=== PATIENT | male | born 1970 ===

== ENCOUNTER 2019-06-18 10:48 | Inpatient (IN) | payer SELFPAY ==
[~2019-06-18] VITALS: Ht 170.2 cm; Wt 65.8 kg
[2019-06-18] MEDS ORDERED: KOMBIGLYZE XR 11 TER PO (11:04)
[2019-06-18 11:24] LABS: BASO # 0.1 (0.0-0.2); BASO % 0.7 % (0.0-2.0); EOS # 0.3 (0.0-0.7); EOS % 4.1 % (0-4.0); GRAN # 4.4 (1.4-6.5); GRAN % 58.7 % (42.2-75.2); HEMATOCRIT 39.6 % (42.0-52.0); LYMPH % 26.2 % (20.0-51.0); MEAN CELL VOLUME 85 fl (80.0-100.0); MEAN CORPUSCULAR HEMOGLOBIN 28 pg (27.0-31.0); MEAN CORPUSCULAR HGB CONC 33 g/dl (33.0-37.0); MEAN PLATELET VOLUME 10.4 fl (7.4-10.4); MONO # 0.8 (0.1-0.6); PLATELET COUNT 267 K/mm3 (130-400); RED BLOOD COUNT 4.66 M/mm3 (4.20-5.60); REDCELL DISTRIBUTION WIDTH-CV 12.6 % (11.5-14.5)
[2019-06-18 11:39] LABS: ALBUMIN 4.1 gm/dL (3.5-5.0); BILIRUBIN,TOTAL 0.5 mg/dL (0.0-1.0); CALCIUM 9.9 mg/dL (8.4-10.2); CREATININE, serum 1.3 (0.66-1.25); POTASSIUM 4.2 mmol/L (3.4-5.0); TOTAL PROTEIN 7.9 gm/dL (6.4-8.2)
[2019-06-18 12:09] LABS: THYROID STIMULATING HORMONE 2.84 uIU/mL (0.465-4.680)
[2019-06-18 17:19] VITALS: BP 152/86; PULSE 78; TEMP 98.6
--- NOTE | 2019-06-18 17:25 | NUR ---
Dysphasia screen conducted, given increasing amounts of water, no coughing, choking, or other problems noted.
[2019-06-18 19:01] VITALS: BP 138/73; PULSE 86; TEMP 98.1
--- NOTE | 2019-06-18 19:27 | NUR ---
Pt up to the floor from the ED this afternoon, no C/O pain, Pt speaks only Trin[place], Family helped by translating. Initial assessments completed without remarkable findings.
--- NOTE | 2019-06-18 19:45 | NUR ---
PT RESTING IN BED A+OX4. FAMILY AT BEDSIDE. REPORTS NO PAIN NO SOA. NO NAUSEA. LUNGS CLEAR AND DIMINISHED. BOWELS SOUNDS HEARD THROUGHOUT ABD. SOFT ABD. HEART RRR. TELE ON. SCORE 0 ON STROKE SCALE. IV FLUSHES WELL, NO REDNESS, NO SWELLING. NO NEEDS AT THIS TIME. CALL LIGHT IN REACH
--- NOTE | 2019-06-18 23:21 | NUR ---
nuero checks insignificant and unchanged.
[2019-06-19 00:01] VITALS: BP 155/89; PULSE 74; TEMP 97.9
[2019-06-19 03:25] VITALS: BP 135/90; PULSE 75
--- NOTE | 2019-06-19 04:25 | NUR ---
PT RESTING IN BED. STROKE SCALE- PT IS ABLE TO FOLLOW DIRECTIONS- STRENGTH ON BOTH SIDES EQUAL AND STRONG THROUGHOUT NIGHT. WHEN FAMILY IS AT BEDSIDE, THIS NURSE IS ABLE TO ASK ORIENTAION QUESTIONS- PT TAKES AN EXTENDED AMOUNT OF TIME TO ANSWER- FAMILY MEMBER SAYS HE ANSWERED CORRECTLY, BUT FAMILY MEMBER UZBEK IS POOR. THIS NURSE ASKED IF THAT CONFUSION AND DELAY IS NORMAL FOR PATIENT HE FAMILY MEMBER STATES HE DOES NOT KNOW.
--- NOTE | 2019-06-19 05:43 | NUR ---
PT HAD AN UNEVENTFUL NIGHT. PT FOLLOWED DIRECTION FOR NUERO CHECKS. STRENGTH IS STRONG AND EQUAL ON BILAT SIDES. PT SLOW TO ANSWER QUESTIONS AND FAMILY MEMBER REPORTS HE ANSWERS QUESTIONS RIGHT BUT THEN OTHER TIMES HE SAYS HE DOES NOT- FAMILY MEMBERS GERMAN IS VERY POOR- SO UNCLEAR IF RESPONSES ARE ACCURATE. PT DOES SEEM CONFUSED WHEN FAMILY ASKS ORIENTATION QUESTIONS. NO PAIN. NO SOA. NO NEEDS AT THIS TIME. CALL LIGHT IN REACH
[2019-06-19 06:35] LABS: BASO # 0.1 (0.0-0.2); BASO % 0.8 % (0.0-2.0); EOS # 0.3 (0.0-0.7); EOS % 5.2 % (0-4.0); GRAN # 2.8 (1.4-6.5); GRAN % 47.3 % (42.2-75.2); HEMATOCRIT 38.1 % (42.0-52.0); HEMOGLOBIN 12.6 g/dl (13.5-18.0); LYMPH # 2.1 (1.2-3.4); LYMPH % 35.6 % (20.0-51.0); MEAN CELL VOLUME 85 fl (80.0-100.0); MEAN CORPUSCULAR HEMOGLOBIN 28 pg (27.0-31.0); MEAN CORPUSCULAR HGB CONC 33 g/dl (33.0-37.0); MONO # 0.6 (0.1-0.6); MONO % 10.8 % (1.7-9.3); PLATELET COUNT 264 K/mm3 (130-400); REDCELL DISTRIBUTION WIDTH-CV 12.5 % (11.5-14.5)
[2019-06-19 06:48] LABS: ALBUMIN 3.6 gm/dL (3.5-5.0); BILIRUBIN,TOTAL 0.5 mg/dL (0.0-1.0); CHOLESTEROL RISK RATIO 4.6; CREATININE, serum 0.77 (0.66-1.25); POTASSIUM 3.9 mmol/L (3.4-5.0); TOTAL PROTEIN 7.1 gm/dL (6.4-8.2)
--- NOTE | 2019-06-19 06:49 | NUR ---
REPORT GIVEN TO ERICK TOVAR
--- NOTE | 2019-06-19 08:00 | NUR ---
PATIENT IS ORIENTED TO PERSON BUT IS CONFUSED. WHEN ASKED WHERE HE IS PATIENT ANSWERED "OUTSIDE" IN [place]. PATIENT DOES NOT SPEAK KHMER. NEPHEW AT BEDSIDE TO ASSIST WITH TRANSLATION. PATIENT IS ALSO COUNTING IN [place], QUIETLY WITH HIS FINGERS ON HIS RIGHT HAND, OVER AND OVER. WHEN ASKED WHAT HE IS DOING PATIENT JUST LAUGHTS. PHYSICAL ASSESSMENT IS WNL. ST AT BEDSIDE TO EVAL & TREAT. HEAD TO TOE ASSESSMENT COMPLETE. AM MEDS GIVEN. CALL LIGHT IN REACH.
--- NOTE | 2019-06-19 10:40 | NUR ---
Initial visit; Patient's family thanked Fat Purification Worker for looking in on him and offering God's blessings. Patient will be offered Holy Communion.
[2019-06-19 11:34] VITALS: BP 131/83; PULSE 76; TEMP 97.5
--- NOTE | 2019-06-19 14:56 | NUR ---
SW met with the patient, patient's uncle (Alexander), and Alexander's (Deanna) to discuss discharge plan. The patient was sleeping and the patient's friend, Deanna, answered questions. The patient lives in [place] with a friend/co-worker. Deanna reports that the patient's , Basia, lives in [place] with their three daughters. Deanna reports that the patient is independent with ADLs and does not have any DME. The patient's primary care provider is Janet Stoner APRN at [facility] and he receives his medications at the [facility]. Deanna reports that the patient has no difficulties obtaining his meds. The patient is self pay. Financial Counselor, Kayla, was consulted and plans to meet with the patient. Deanna reports that she is the patient's emergency contact here (ph#[phone]). The patient plans to return back home upon discharge. No other identified needs at this time, but SW to continue to follow.
[2019-06-19] MEDS ORDERED: LIPITOR 40MG TA40 MG PO (16:21)
[2019-06-19] MEDS ORDERED: ZESTRIL 10MG10 MG PO (16:21)
[2019-06-19] MEDS ORDERED: ASPI325T6 PO (16:21)
[2019-06-19 16:45] VITALS: BP 129/75; PULSE 82; TEMP 99.1
--- NOTE | 2019-06-19 18:15 | NUR ---
PATIENT DISCHARGING HOME VIA WHEELCHAIR TO PERSONAL VEHICLE WITH FAMILY. GAVE DISCHARGE INSTRUCTIONS TO RAMON. PATIENT UNABLE TO READ/WRITE ERITREAN. PATIENT EDUCATION WAS PRINTED IN [place]. DC'D LEFT AC IV AND COVERED WITH [employer]. TELE OFF. PATIENT DISCHARGED.
== END 2019-06-19 18:20 | disposition home or self-care (01) | DRG 65 ==
LOC: COL.ER 10:48 → MEDICAL 14:52
PROVIDERS: Family Medicine; ADMIT Family Medicine
DX: I63.9 Cerebral infarction, unspecified (principal); G81.94 Hemiplegia, unspecified affecting left nondominant side; N17.9 Acute kidney failure, unspecified; R47.01 Aphasia; I10 Essential (primary) hypertension; E78.5 Hyperlipidemia, unspecified; D64.9 Anemia, unspecified; E11.65 Type 2 diabetes mellitus with hyperglycemia; R29.700 NIHSS score 0; Z79.84 Long term (current) use of oral hypoglycemic drugs
CPT/HCPCS: 99223-AI; 99239; A9585; J1650; J7030